=== PATIENT | female | born 1960 | race Caucasian/White ===

== ENCOUNTER 2017-02-19 15:19 | Emergency (ER) | payer OTHER ==
[2017-02-19 15:20] VITALS: BMI 35.4
[2017-02-19 15:24] VITALS: BP 116/78; PULSE 76; RESP 20; TEMP 97.8; O2SAT 96
--- NOTE | 2017-02-19 22:47 | C.PDOC ---
History Of Present Illness The patient, a 56 y/o female whose PMHx includes right-sided sciatica, presents to the ED for evaluation after a recent flare up of her chronic right-sided sciatic pain. Patient denies recent trauma/direct injuries to affected areas, urinary/bowel incontinence, upper/lower extremity numbness/weakness, and has no other physical complaints at this time. Chief Complaint (Nursing): Back Pain History Per: Patient History/Exam Limitations: no limitations Onset/Duration Of Symptoms: Days Current Symptoms Are (Timing): Still Present Quality Of Discomfort: "Pain" Previous Symptoms: Back Pain, Chronic Pain Associated Symptoms: denies: Incontinence, New Weakness, New Numbness Additional History Per: Patient Past Medical History Reviewed: Historical Data, Nursing Documentation, Vital Signs Vital Signs: Last Vital Signs Temp 97.8 F 02/19/17 15:22 Pulse 76 02/19/17 15:22 Resp 20 02/19/17 15:22 BP 116/78 02/19/17 15:22 Pulse Ox 96 02/19/17 22:51 - Medical History PMH: Asthma, Diabetes (type II), HTN Surgical History: No Surg Hx - [facility] Procedures ESOPHAGOGASTRODUODENOSCOPY [EGD] W/CLOSED BIOPSY (12/19/14) Family History: States: Diabetes, Hypertension - Social History Hx Alcohol Use: No Hx Substance Use: No Review Of Systems Except As Marked, All Systems Reviewed And Found Negative. Genitourinary: Negative for: Incontinence Musculoskeletal: Positive for: Back Pain (+flare up of chronic right-sided sciatic pain ) Neurological: Negative for: Weakness, Numbness Physical Exam - Physical Exam Appears: Non-toxic, No Acute Distress Skin: Normal Color, Warm, Dry Head: Atraumatic, Normacephalic Eye(s): bilateral: Normal Inspection Oral Mucosa: Moist Neck: Normal ROM, Supple Chest: Symmetrical, No Deformity, No Tenderness Cardiovascular: Rhythm Regular, No Murmur Respiratory: Normal Breath Sounds, No Rales, No Rhonchi, No Wheezing Gastrointestinal/Abdominal: No Rebound Back: Normal Inspection, No Vertebral Tenderness, No Paraspinal Tenderness Extremity: Normal ROM, Capillary Refill (less than 2 seconds ) Pulses: Left Dorsalis Pedis: Normal, Right Dorsalis Pedis: Normal Neurological/Psych: Oriented x3, Normal Speech, Normal Cognition, Normal Sensation Gait: Steady ED Course And Treatment O2 Sat by Pulse Oximetry: 96 (on RA) Pulse Ox Interpretation: Normal Medical Decision Making Medical Decision Making: Impression: 56 y/o female with right-sided sciatic pain Plan: * Motrin PO * Flexeril PO * reassess and disposition Progress Notes: Patient received Motrin PO and Flexeril PO. On reassessment, patient is resting comfortably, showing no signs of distress, and reports an improvement in her pain. Patient is ambulatory in the ED without distress and is stable for discharge. Patient is advised to follow up with her PMD within 2-3 days for further evaluation. Disposition - Disposition Referrals: [email or web address], [Non-Staff] - Disposition: HOME/ ROUTINE Disposition Time: 16:15 Condition: GOOD Additional Instructions: Thank you for letting us take care of you today. Your provider was Dr. Kumar. You were treated for chronic back pain. The emergency medical care you received today was directed at your acute symptoms. If you were prescribed any medication, please fill it and take as directed. It may take several days for your symptoms to resolve. Return to the Emergency Department if your symptoms worsen, do not improve, or if you have any other problems. Please contact your doctor or call one of the physicians/clinics you have been referred to that are listed on the Patient Visit Information form that is included in your discharge packet. Bring any paperwork you were given at discharge with you along with any medications you are taking to your follow up visit. Our treatment cannot replace ongoing medical care by a primary care provider (PCP) outside of the emergency department. Thank you for allowing the [facility] team to be part of your care today. Follow up with your doctor in 2-3 days for re-evaluation. Prescriptions: Cyclobenzaprine [Cyclobenzaprine HCl] 10 mg PO Q8 PRN #20 tab PRN Reason: Muscle Spasm Ibuprofen [Motrin] 600 mg PO Q6 PRN #20 tab PRN Reason: Pain, Moderate (4-7) Instructions: Sciatica (ED), Chronic Back Pain (ED) Forms: Gen Discharge Inst Polish, Work Excuse Print Language: [place] - Clinical Impression Clinical Impression: Low back pain - Scribe Statement The provider has reviewed the documentation as recorded by the Scribe (Amy Nugent) Provider Attestation: All medical record entries made by the Scribe were at my direction and personally dictated by me. I have reviewed the chart and agree that the record accurately reflects my personal performance of the history, physical exam, medical decision making, and the department course for this patient. I have also personally directed, reviewed, and agree with the discharge instructions and disposition.
== END 2017-02-19 16:39 | disposition home or self-care (01) ==
LOC: C.ER 15:19
DX: M54.5 Low back pain (principal)

== ENCOUNTER 2017-10-07 11:44 | Emergency (ER) | payer OTHER ==
[2017-10-07 11:44] VITALS: BMI 35.4
[2017-10-07 12:03] VITALS: BP 161/89; PULSE 76; RESP 2; TEMP 98; O2SAT 98
--- NOTE | 2017-10-07 12:17 | C.PDOC ---
History Of Present Illness 56 year old female presents to the ER for for sciatica like pain in the lower right back which has been present for the past 4 days. Patient states that the pain radiates down her right leg. She thinks the pain might be related to her work. Patient reports that she took Tylenol without any relief. She denies having any injury,weakness, numbness, and incontinence. Patient states that she does have cough and congestion. Time Seen by Provider: 10/07/17 12:07 Chief Complaint (Nursing): Back Pain History Per: Patient History/Exam Limitations: no limitations Onset/Duration Of Symptoms: Days Current Symptoms Are (Timing): Still Present Severity: Moderate Associated Symptoms: None Past Medical History Reviewed: Historical Data, Nursing Documentation, Vital Signs Vital Signs: Last Vital Signs Temp 98.0 F 10/07/17 12:00 Pulse 76 10/07/17 12:00 Resp 2 L 10/07/17 12:00 BP 161/89 H 10/07/17 12:00 Pulse Ox 98 10/07/17 12:54 - Medical History PMH: Asthma, Diabetes (type II), HTN, Hypercholesterolemia Denies: Chronic Kidney Disease Surgical History: No Surg Hx - [facility] Procedures ESOPHAGOGASTRODUODENOSCOPY [EGD] W/CLOSED BIOPSY (12/19/14) Family History: States: Diabetes, Hypertension - Social History Hx Alcohol Use: No Hx Substance Use: No - Immunization History Hx Tetanus Toxoid Vaccination: No Hx Influenza Vaccination: No Hx Pneumococcal Vaccination: No Review Of Systems Except As Marked, All Systems Reviewed And Found Negative. Constitutional: Negative for: Fever, Chills ENT: Positive for: Nose Congestion Respiratory: Positive for: Cough Genitourinary: Negative for: Incontinence Musculoskeletal: Positive for: Back Pain Neurological: Negative for: Weakness, Numbness Physical Exam - Physical Exam Appears: Non-toxic, No Acute Distress Skin: Normal Color, Warm Head: Atraumatic, Normacephalic Eye(s): bilateral: Normal Inspection, PERRL Ear(s): Bilateral: Normal Nose: Discharge (nasal congestion) Oral Mucosa: Moist Throat: Normal, No Erythema, No Exudate Neck: Supple Chest: Symmetrical Cardiovascular: Rhythm Regular Respiratory: Normal Breath Sounds, No Accessory Muscle Use, No Rales, No Rhonchi , No Wheezing Gastrointestinal/Abdominal: Normal Exam, Soft, No Tenderness Back: Normal Inspection, No CVA Tenderness, No Vertebral Tenderness, No Paraspinal Tenderness Extremity: Normal ROM Neurological/Psych: Oriented x3, Normal Speech, Normal Cognition, Normal Motor, Normal Sensation ED Course And Treatment O2 Sat by Pulse Oximetry: 98 (RA) Pulse Ox Interpretation: Normal Medical Decision Making Medical Decision Making: Impression: Lower Back Pain Plan: -- Flexeril 10 mg PO --Toradol 60 mg IM RE-Eval: 1300 Patient is seated comfortably in bed and reports feeling better. Pain is improving. She is ambulatory without discomfort. She feels comfortable going home and will be discharge. Rx given. Recommend OTC decongestant and cough medicine. Advise follow up with her PCP. Disposition Counseled Patient/Family Regarding: Diagnosis, Need For Followup, Rx Given - Disposition Referrals: Jeannette Pruitt MD [Medical Doctor] - Disposition: HOME/ ROUTINE Disposition Time: 12:52 Condition: STABLE Additional Instructions: [place] [facility]ament[facility] para el dolor de espalda segn sea necesario Hernesto un seguimiento con colin mdico para recibir ms atencin Prescriptions: Cyclobenzaprine [Cyclobenzaprine HCl] 10 mg PO TID #21 tab Ibuprofen [Motrin] 600 mg PO Q8 #30 tab Instructions: Sciatica (ED) Forms: Zibby (Khmer) Print Language: PORTUGUESE - POA Present On Arrival: None - Clinical Impression Clinical Impression: Sciatica - 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 - Scribe Statement The provider has reviewed the documentation as recorded by the Isaac Macario Provider Attestation All medical record entries made by the Maeveibtye were at my direction and personally dictated by me. I have reviewed the chart and agree that the record accurately reflects my personal performance of the history, physical exam, medical decision making, and the department course for this patient. I have also personally directed, reviewed, and agree with the discharge instructions and disposition.
== END 2017-10-07 13:02 | disposition home or self-care (01) ==
LOC: C.ER 11:44
DX: M54.31 Sciatica, right side (principal)
CPT/HCPCS: 96372; 99283; J1885

== ENCOUNTER 2017-10-29 12:57 | Emergency (ER) | payer OTHER ==
[2017-10-29 12:57] VITALS: BMI 35.4
[2017-10-29 13:02] VITALS: TEMP 98
--- NOTE | 2017-10-29 13:31 | C.PDOC ---
History Of Present Illness 57 yr old female with history of sciatica, presents to the ER for back pain, radiating to the right leg. Patient states she took Ibuprofen with minimal relief. She reports this is typical of her pain. She was seen in ED last month and got a shot that helped. Denies abdominal pain, dysuria, incontinence, weakness or numbness. Time Seen by Provider: 10/29/17 13:13 Chief Complaint (Nursing): Back Pain History Per: Patient History/Exam Limitations: no limitations Onset/Duration Of Symptoms: Days Past Medical History Reviewed: Historical Data, Nursing Documentation, Vital Signs Vital Signs: Last Vital Signs Temp 98 F 10/29/17 12:59 Pulse 84 10/29/17 14:19 Resp 16 10/29/17 14:19 BP 112/75 10/29/17 14:19 Pulse Ox 98 10/29/17 14:19 - Medical History PMH: Asthma, Diabetes (type II), HTN, Hypercholesterolemia - [facility] Procedures ESOPHAGOGASTRODUODENOSCOPY [EGD] W/CLOSED BIOPSY (12/19/14) Family History: States: Diabetes, Hypertension - Social History Hx Alcohol Use: No Hx Substance Use: No - Immunization History Hx Tetanus Toxoid Vaccination: No Hx Influenza Vaccination: No Hx Pneumococcal Vaccination: No Review Of Systems Except As Marked, All Systems Reviewed And Found Negative. Gastrointestinal: Negative for: Abdominal Pain Genitourinary: Negative for: Dysuria, Incontinence Musculoskeletal: Positive for: Back Pain Neurological: Negative for: Weakness, Numbness Physical Exam - Physical Exam Appears: Non-toxic, No Acute Distress Skin: Warm, Dry, No Rash Head: Atraumatic, Normacephalic Eye(s): bilateral: Normal Inspection, EOMI Nose: Normal Oral Mucosa: Moist Neck: Normal ROM Chest: Symmetrical Cardiovascular: Rhythm Regular, No Murmur Respiratory: Normal Breath Sounds, No Rales, No Rhonchi, No Stridor, No Wheezing Gastrointestinal/Abdominal: Bowel Sounds, No Tenderness Back: Normal Inspection (no swelling, bulging or rash), No Vertebral Tenderness , No Decreased ROM, Other ((+) mild lower back tenderness) Extremity: Normal ROM, No Swelling Neurological/Psych: Oriented x3, Normal Speech Gait: Steady ED Course And Treatment O2 Sat by Pulse Oximetry: 99 (RA) Pulse Ox Interpretation: Normal Medical Decision Making Medical Decision Making: PLAN: * Valium Po * Toradol IM Re-Eval: Patient reprots pain is improving, feels better than when she arrived to ED. She is ambulatory without signs of discomfort. She is stable for discharge and Rx given. Disposition Counseled Patient/Family Regarding: Need For Followup, Rx Given - Disposition Disposition: HOME/ ROUTINE Disposition Time: 14:12 Condition: IMPROVED Additional Instructions: Vaya a colin mdico o la clnica en 2-5 hawk sin falta, para mas evaluacin. [place] los medicamentos emma indicado. Volver a la nancie de emergencia en cualquier momento si los sntomas persisten o empeoran. Prescriptions: Cyclobenzaprine [Cyclobenzaprine HCl] 10 mg PO TID #30 tab Ibuprofen [Motrin] 600 mg PO Q8 #30 tab Instructions: Sciatica (ED) Forms: Vinobo (Danish) Print Language: MALAWIAN - POA Present On Arrival: None - Clinical Impression Clinical Impression: Low back pain, Sciatica - PA / ARTIST MODEL / Resident Statement MD/DO has reviewed & agrees with the documentation as recorded. - Scribe Statement The provider has reviewed the documentation as recorded by the Scribe Khadra Rao All medical record entries made by the Scribe were at my direction and personally dictated by me. I have reviewed the chart and agree that the record accurately reflects my personal performance of the history, physical exam, medical decision making, and the department course for this patient. I have also personally directed, reviewed, and agree with the discharge instructions and disposition.
[2017-10-29 14:20] VITALS: BP 112/75; PULSE 84; RESP 16
[2017-10-29 16:59] VITALS: O2SAT 99
== END 2017-10-29 14:19 | disposition home or self-care (01) ==
LOC: C.ER 12:57
DX: M54.41 Lumbago with sciatica, right side (principal)
CPT/HCPCS: 96372; 99283; J1885